=== PATIENT | female | born 1970 | race Caucasian/White ===

== ENCOUNTER 2024-11-23 06:06 | Day surgery (SDC) | payer BC, SELFPAY ==
[2024-11-18 10:00] VITALS: BMI 24.9
[2024-11-18 11:30] LABS: Hematocrit 40.6 % (37.0-47.0); Hemoglobin 13.4 g/dL (12.0-16.0); Mean Corpuscular Hgb 30.3 pg (27.0-31.0); Mean Corpuscular Volume 91.9 fL (81.0-99.0); Mean Platelet Volume 11.3 fL (7.4-10.4); Platelet Count 200 10^3/uL (130-400); Red Blood Cell Count 4.42 10^6/uL (4.20-5.40); Red Cell Dist. Width 12.5 % (11.5-14.5)
[2024-11-18 11:46] LABS: INR 0.89; PT 12.6 Sec (11.4-14.6)
[2024-11-18 11:48] LABS: APTT 24.1 Sec (23.4-35.0)
[2024-11-18 12:00] LABS: ALT (SGPT) 21 U/L (0-35); AST (SGOT) 30 U/L (14-36); Albumin 4.5 g/dl (3.5-5.0); Alkaline Phosphatase 85 U/L (38-126); Blood Urea Nitrogen 15 mg/dl (7-17); Calcium 9.2 mg/dl (8.4-10.2); Carbon Dioxide 29 mmol/L (22-30); Chloride 99 mmol/L (98-107); Estimated Creatinine Clearance 91 ml/min; Glucose 95 mg/dl (70-99); Potassium 3.6 mmol/L (3.5-5.1); Sodium 140 mmol/L (135-145); Total Bilirubin 0.6 mg/dl (0.2-1.3); Total Protein 7.1 g/dl (6.3-8.2); eGFR > 60.00
--- NOTE | 2024-11-18 16:14 | PTCARENOTE ---
Abnormal EKG done 11/[address] Randhawa, no additional intervention.
[2024-11-23] VITALS (8 sets, daily range): BP systolic 120–171; BP diastolic 74–91; BMI 24.9
[2024-11-23] MEDS: TYLENOL 1000 MG PO (06:45)
[2024-11-23] MEDS: HEPARIN 5000 UNITS SC (06:47)
[2024-11-23] MEDS: NORMOSOL-R/PLASMALYTE-A 1000 IV (06:47)
[2024-11-23] MEDS: NEURONTIN 300 MG PO (06:47)
--- NOTE | 2024-11-23 08:50 | OR.RPT ---
Operative Report
Operative Report
DATE OF OPERATION: November 23, 2024
PREOPERATIVE DIAGNOSIS: Left Thyroid Nodule - E041
POSTOPERATIVE DIAGNOSIS: Same
SURGEON: Marquis Solomon M.D.
OPERATION: Left Thyroid Lobectomy - 40879
ANESTHESIA: GET
ESTIMATED BLOOD LOSS: 3 cc
DRAINS: None
SPECIMEN: left total thyroid lobe and isthmus
FINDINGS: multinodular goiter
COMPLICATIONS:� None
PROCEDURE:
The patient was taken to the operating room and placed in the usual supine position. After adequate general endotracheal anesthesia was established, the patient�s neck was extended, prepped, and draped in the typical sterile fashion. A 4 cm
transcervical incision was made two fingerbreadths above the sternal notch. The skin incision was made with the #15 blade, which was taken through the skin into the subcutaneous tissue. The underlying platysma muscle was divided, and subplatysmal
flaps were created superiorly to the thyroid cartilage and inferiorly to the sternal notch. Strap muscles were identified and at the midline.
Attention was turned to the patient�s left thyroid lobe. The left thyroid lobe was mobilized medially. During this process, the left middle thyroid vein and inferior thyroid artery were dissected and ligated with Ligasure. Next, the left superior
pole was taken down by dissecting and transecting the superior pole vessels with a Ligasure. The left thyroid lobe was mobilized medially. During this process, the left recurrent laryngeal nerve was identified and preserved throughout its entire
course. The left inferior parathyroid gland was identified and preserved. The left thyroid lobe with isthmus was resected off the trachea and sent to the pathology department.
After obtaining adequate hemostasis, the strap muscle was approximated with #3-0 Vicryl in a running fashion, and platysma muscles were reapproximated with #3-0 Vicryl in an interrupted fashion, and the skin was approximated with #4-0 Monocryl in a
running subcuticular fashion. Steri-strips and sterile dressings were placed. The patient tolerated the procedure well. The final instrument, needle, and sponge counts were correct.
== END 2024-11-23 10:35 | disposition home or self-care (01) ==
LOC: SDS 06:06
PROVIDERS: ATTENDING PHYSICIAN Surgery; FAMILY PHYSICIAN Family Medicine
DX: E04.2 Nontoxic multinodular goiter (principal); E04.1 Nontoxic single thyroid nodule
CPT/HCPCS: 60220; 88307; 36415; 80053; 85027; 85610; 85730; 93005; C1776